=== PATIENT | female | born 1930 | race Caucasian/White ===

== ENCOUNTER → 2016-10-21 | Outpatient (CLI) | payer OTHER ==
[~2016-10-21] MED LIST: ASPI81TA28 PO; ATEN-173 PO; CPR500 PO; FENO48TA9 PO; LEVO100T PO; LISI-791 PO; MULT-845 PO; NVLNI SC; SERT50TA PO; TRAM-10 PO
[2016-10-21 18:30] LABS: URINE APPEARANCE CLEAR (CLEAR); URINE BILIRUBIN NEG (NEG); URINE COLOR YELLOW; URINE EPITHELIAL CELL AUTO 0-5 /lpf (0-5); URINE NITRITE POS (NEG); URINE SPECIFIC GRAVITY 1.008 (1.000-1.030); UROBILINOGEN NEG (NEG)
[2016-10-21 18:34] LABS: MANUAL MICROSCOPIC REQUIRED? NO; REVIEW REQ? NO
== END ==
LOC: C.LABCC 17:56
PROVIDERS: ATTEND Internal Medicine
DX: R53.83 Other fatigue (principal)

== ENCOUNTER → 2016-11-05 | Outpatient (CLI) | payer OTHER ==
[2016-11-05 09:09] LABS: HA1C FLAG Normal (Normal)
[2016-11-05 09:53] LABS: ESTIMATED AVERAGE GLUCOSE 151 mg/dl
== END ==
LOC: C.LABCC 07:56
PROVIDERS: ATTEND Internal Medicine
DX: E11.9 Type 2 diabetes mellitus without complications (principal)

== ENCOUNTER → 2016-11-15 | Outpatient (CLI) | payer OTHER ==
[2016-11-15 09:32] LABS: ALT/SGPT 23 U/L (12-78); AST/SGOT 22 U/L (15-37); BLOOD UREA NITROGEN 21 mg/dl (7-18); BUN/CREATININE RATIO 26.6 (10-20); CALCIUM 8.9 mg/dl (8.5-10.1); CARBON DIOXIDE 32 mmol/L (21-32); CHLORIDE 107 mmol/L (98-107); CREATININE 0.78 mg/dl (0.60-1.20); GLUCOSE 58 mg/dl (70-99); HDL CHOLESTEROL 45 mg/dl; SODIUM 145 mmol/L (136-145)
[2016-11-15 09:44] LABS: ALB/GLOB RATIO 0.8 (0.9-2); ALKALINE PHOSPHATASE 82 U/L (45-117); CHOLESTEROL 181 mg/dl (0-200); LDL CHOLESTEROL CALCULATED 87 mg/dl; THYROID STIMULATING HORMONE 0.306 uIu/ml (0.300-4.500); TRIGLYCERIDES 244 mg/dl (0-150); VERY LOW DENSITY LIPOPROT CALC 49 mg/dl
== END ==
LOC: C.LABCC 08:23
PROVIDERS: ATTEND Internal Medicine
DX: E78.5 Hyperlipidemia, unspecified (principal); E03.9 Hypothyroidism, unspecified

== ENCOUNTER → 2016-11-22 | Outpatient (CLI) | payer OTHER ==
[2016-11-22 08:50] LABS: BASO % 0.2 %; BASO ABS # 0.02 K/uL (0-0.2); COMPLETE YES; EOS % 2.2 %; HEMATOCRIT 40.5 % (37-47); IG% 0.2 %; LYMPH % 48.3 %; LYMPH ABS # 3.97 K/uL (1.2-3.4); MEAN CELL VOLUME 92.9 fL (80-100); MEAN CORPUSCULAR HEMOGLOBIN 30.7 pg (25-34); MEAN CORPUSCULAR HGB CONC 33.1 g/dl (32-36); MEAN PLATELET VOLUME 11.3 fL (7.4-10.4); MONO % 7.1 %; PLATELET COUNT 244 K/uL (130-400); RED BLOOD COUNT 4.36 M/uL (4.2-5.4); WHITE BLOOD COUNT 8.22 K/uL (4.8-10.8)
== END ==
LOC: C.LABCC 08:28
PROVIDERS: ATTEND Internal Medicine
DX: R53.83 Other fatigue (principal)

== ENCOUNTER → 2017-02-10 | Outpatient (CLI) | payer OTHER ==
[2017-02-10 14:00] LABS: URINE APPEARANCE CLOUDY (CLEAR); URINE BILIRUBIN NEG (NEG); URINE COLOR DK YELLOW; URINE EPITHELIAL CELL AUTO 20-30 /lpf (0-5); URINE NITRITE POS (NEG); URINE PH 8.5 (4.5-7.5); URINE SPECIFIC GRAVITY 1.019 (1.000-1.030); UROBILINOGEN NEG (NEG)
[2017-02-10 14:20] LABS: MANUAL MICROSCOPIC REQUIRED? NO; REVIEW REQ? NO; SULFASALICYLIC ACID POS (NEG)
== END ==
LOC: C.LABCC 12:30
PROVIDERS: ATTEND Internal Medicine
DX: R30.0 Dysuria (principal)

== ENCOUNTER → 2017-03-08 | Outpatient (CLI) | payer OTHER ==
[2017-03-08 10:37] LABS: ESTIMATED AVERAGE GLUCOSE 140 mg/dl; HA1C FLAG Normal (Normal)
== END ==
LOC: C.LABCC 07:52
PROVIDERS: ATTEND Internal Medicine
DX: E11.9 Type 2 diabetes mellitus without complications (principal)

== ENCOUNTER → 2017-05-16 | Outpatient (CLI) | payer OTHER ==
[2017-05-16 11:18] LABS: URINE APPEARANCE CLEAR (CLEAR); URINE BILIRUBIN NEG (NEG); URINE COLOR YELLOW; URINE NITRITE NEG (NEG); URINE SPECIFIC GRAVITY 1.016 (1.000-1.030); UROBILINOGEN NEG (NEG)
[2017-05-16 11:29] LABS: MANUAL MICROSCOPIC REQUIRED? NO; REVIEW REQ? NO
== END ==
LOC: C.LABCC 10:43
PROVIDERS: ATTEND Internal Medicine
DX: R41.82 Altered mental status, unspecified (principal)

== ENCOUNTER → 2017-05-18 | Outpatient (CLI) | payer OTHER ==
[2017-05-19 01:21] LABS: URINE APPEARANCE CLOUDY (CLEAR); URINE BILIRUBIN NEG (NEG); URINE COLOR YELLOW; URINE EPITHELIAL CELL AUTO 20-30 /lpf (0-5); URINE NITRITE NEG (NEG); URINE PH >= 9.0 (4.5-7.5); URINE SPECIFIC GRAVITY 1.025 (1.000-1.030); UROBILINOGEN NEG (NEG)
[2017-05-19 01:28] LABS: MANUAL MICROSCOPIC REQUIRED? NO; REVIEW REQ? NO; SULFASALICYLIC ACID NEG (NEG)
== END ==
LOC: C.LABCC 12:39
PROVIDERS: ATTEND Internal Medicine
DX: R41.82 Altered mental status, unspecified (principal)

== ENCOUNTER → 2017-06-28 | Outpatient (CLI) | payer OTHER ==
[2017-06-28 09:06] LABS: HEPATITIS B AB NEG
== END ==
LOC: C.LABCC 07:59
PROVIDERS: ATTEND Internal Medicine
DX: Z77.21 Contact with and (suspected) exposure to potentially hazardous body fluids (principal)

== ENCOUNTER → 2017-07-08 | Outpatient (CLI) | payer OTHER ==
[2017-07-08 09:26] LABS: ESTIMATED AVERAGE GLUCOSE 163 mg/dl; HA1C FLAG Normal (Normal)
== END ==
LOC: C.LABCC 08:16
PROVIDERS: ATTEND Internal Medicine
DX: E11.9 Type 2 diabetes mellitus without complications (principal)

== ENCOUNTER → 2017-11-10 | Outpatient (CLI) | payer OTHER ==
[2017-11-10 08:44] LABS: HEMOGLOBIN A1C 6.9 % (4.5-5.6)
== END ==
LOC: C.LABCC 08:06
PROVIDERS: ATTEND Internal Medicine
DX: E11.9 Type 2 diabetes mellitus without complications (principal)